=== PATIENT | female | born 1955 | race Caucasian/White ===

== ENCOUNTER → 2021-05-23 | Day surgery (SDC) | payer MEDICARE ==
[~2021-05-23] VITALS: Ht 152.4 cm; Wt 121.3 kg
[~2021-05-23] MED LIST: AMLO-433 PO; ASPI-630 PO; CITA40TA5 PO; HYDROmorphone 2 MG/ML VIAL IVP PRN; INSU100I17 SQ; INSU100I32 SQ; IRBE300T23 PO; IV RINGERS,LACTATED 1000ML 1,000 ML IV SCH; LIDOCAINE 2% PF 5 ML VIAL. ONE; LORA2ORA7 PO; METF-658 PO; MORPHINE SULFATE 2 MG/ML INJ. IVP PRN; PROCHLORPERAZINE 10 MG/2 ML VIAL. IVP PRN; PROPOFOL 10 MG/ML (20ML) VIAL. IV ONE; ROPI1TAB4 PO; SEMA1PEN SQ; fentaNYL PF VIAL 100 MCG/2 ML VIAL IVP PRN
[2021-05-23 07:35] VITALS: BP 136/61
[2021-05-23 08:35] VITALS: BP 104/61
--- NOTE | 2021-05-23 09:01 | HP ---
ADMIT DATE: 05/23/2021 UPDATED HISTORY AND PHYSICAL REFERRING PHYSICIAN: Sandra Bryant MD HISTORY: A 66-year-old female whose past medical history is significant for hypertension, diabetes, who is seen for interval colon exam. She has had adenomatous polyps. Recent Cologuard was positive. She is here for surveillance exam. PAST MEDICAL HISTORY: Colonic polyps, diabetes, hypertension. ALLERGIES: IODINE, LATEX. MEDICATIONS: Include amlodipine, aspirin, citalopram, insulin, irbesartan, lorazepam, metformin and Ozempic. FAMILY HISTORY: Significant for diabetes and cerebrovascular accident in her father. Cancer with her brother. Depression with her sister. SOCIAL HISTORY: Social drinker. Nonsmoker. PAST SURGICAL HISTORY: Significant for breast surgery, eye surgery, cataracts, hernia repair, hysterectomy and tonsillectomy. REVIEW OF SYSTEMS: Per records. PHYSICAL EXAMINATION: GENERAL: Reveals a well-nourished, well-developed female who is alert, cooperative, in no acute distress. VITAL SIGNS: Temperature 97.9, pulse 120, respiratory rate 22. LUNGS: Clear. CARDIOVASCULAR: Reveals an S1, S2, without S3, S4 or appreciable murmur. ABDOMEN: Reveals a soft abdomen, normal bowel sounds, without appreciable hepatosplenomegaly. EXTREMITIES: Reveal no cyanosis, clubbing or edema. IMPRESSION: Positive Cologuard, history of colonic polyps. Surveillance exam is recommended at this time. Risks and benefits of procedure have been previously discussed with the patient including risk of hemorrhage and perforation with operation. The patient is willing to proceed. RJ DR: Binh TID: [id number]
== END | disposition home or self-care (01) ==
LOC: ENDOS 06:36
PROVIDERS: ATTEND Internal Medicine Gastroenterology
DX: R19.5 Other fecal abnormalities (principal); K64.0 First degree hemorrhoids; K57.30 Diverticulosis of large intestine without perforation or abscess without bleeding; K62.1 Rectal polyp; K63.89 Other specified diseases of intestine; E78.00 Pure hypercholesterolemia, unspecified; G47.30 Sleep apnea, unspecified; E66.9 Obesity, unspecified; E11.9 Type 2 diabetes mellitus without complications; F41.9 Anxiety disorder, unspecified; F32.9 Major depressive disorder, single episode, unspecified; Z85.3 Personal history of malignant neoplasm of breast; Z86.010 Personal history of colon polyps; Z90.710 Acquired absence of both cervix and uterus; Z98.890 Other specified postprocedural states; Z79.899 Other long term (current) drug therapy; Z82.49 Family history of ischemic heart disease and other diseases of the circulatory system; Z83.3 Family history of diabetes mellitus; Z79.82 Long term (current) use of aspirin; Z79.4 Long term (current) use of insulin; Z91.040 Latex allergy status; Z91.041 Radiographic dye allergy status
CPT/HCPCS: 45385; J2704; 88305